=== PATIENT | female | born 2000 | race African-American/Black ===

== ENCOUNTER 2019-07-27 15:33 | Emergency (ER) | payer MEDICAID, SELFPAY ==
[~2019-07-27] VITALS: Ht 162.6 cm; Wt 65.3 kg
[2019-07-27 15:43] VITALS: Ht 162.6 cm; Wt 65.3 kg
[2019-07-27 18:05] VITALS: BP 118/62
== END 2019-07-27 17:50 | disposition home or self-care (01) ==
LOC: ED 15:33
DX: U07.1 COVID-19 (principal)
CPT/HCPCS: Q0092; U0003-CS